=== PATIENT | female | born 1955 | race Caucasian/White ===

== ENCOUNTER 2016-11-11 15:29 | Emergency (ER) | payer OTHER ==
[2016-11-11 15:49] VITALS: BP 142/85
--- NOTE | 2016-11-11 16:28 | UC ---
Dizzy HPI HPI Summary: The patient comes in today for: 1. Dizziness ("spinning sensation"): Onset: Sudden onset while stepping out of the car 4 hours ago. Palliative/provocative: Moving her head makes it worse. Not moving her head makes it better. 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 Associated symptoms: No problems with slurred speech, numbness, weakness, or incoordination. Nausea was previously present, but it was worse when the vertigo was worse. Previous disease: Present in March of this last year. He had the Gennaro maneuver and this helped. * - History Of Current Complaint Chief Complaint: UCDizziness Stated Complaint: DIZZINESS Time Seen by Provider: 11/11/16 16:17 Hx Obtained From: Patient, Family/Cloth Shrinker - Allergies/Home Medications Allergies/Adverse Reactions: Allergies Allergy/AdvReac Type Severity Reaction Status Date / Time No Known Allergies Allergy Verified 11/11/16 15:41 Home Medications: Home Medications Calcium Carbonate (Antacid) [Tums] 500 mg PO 11/11/16 [History] Cholecalciferol [Vitamin D] 1,000 unit PO 11/11/16 [History Confirmed 11/11/16] PMH/Surg Hx/FS Hx/Imm Hx Previously Healthy: No - Hairy cell leukemia dx'ed 1992 and 2003 Endocrine History Of: Denies: Diabetes, Thyroid Disease, Hyperthyroidism, Hypothyroidism, Dyslipidemia Cardiovascular History Of: Denies: Cardiac Disorders, Hypertension, Pacemaker/ICD, Myocardial Infarction , Congestive Heart Failure, Atrial Fibrillation, Deep Vein Thrombosis, Bleeding Disorders Respiratory History Of: Denies: COPD, Asthma, Bronchitis, Pneumonia, Pulmonary Embolism GI/ History Of: Denies: Gastroesophageal Reflux, Ulcer, Gastrointestinal Bleed, Gall Bladder Disease, Kidney Stones, Diverticulitis, Renal Disease, Urosepsis Neurological History Of: Denies: TIA, CVA, Dementia, Seizures, Migraine Psychological History Of: Denies: Anxiety, Depression, Bipolar Disorder, Schizophrenia, Post Traumatic Stress Disorder Cancer History Of: Denies: Lung Cancer, Colorectal Cancer, Breast Cancer, Prostate Cancer, Cervical Cancer Other History Of: Negative For: HIV, Hepatitis B, Hepatitis C, Anticoagulant Therapy - Surgical History Surgical History: Yes Surgery Procedure, Year, and Place: cholescystectomy approx. 2009 - Family History Known Family History: Positive: Hypertension - Social History Occupation: Employed Full-time Lives: With Family Alcohol Use: Occasionally Substance Use Type: None Smoking Status (MU): Never Smoked Tobacco Review of Systems Constitutional: Negative Skin: Negative Eyes: Negative ENT: Negative Respiratory: Negative Cardiovascular: Negative Gastrointestinal: Negative Genitourinary: Negative Motor: Negative All Other Systems Reviewed And Are Negative: Yes Physical Exam Triage Information Reviewed: Yes Appearance: Well-Appearing, No Pain Distress, Well-Nourished Vital Signs: Initial Vital Signs Temp 96.7 F 11/11/16 15:43 Pulse 54 11/11/16 15:43 Resp 16 11/11/16 15:43 BP 142/85 11/11/16 15:43 Pulse Ox 99 11/11/16 15:43 Vital Signs Reviewed: Yes Eyes: Positive: Conjunctiva Clear. Negative: Discharge ENT: Positive: Hearing grossly normal. Negative: Pharyngeal erythema, Nasal congestion, Nasal drainage, TM bulging, TM dull, TM red, Tonsillar swelling, Tonsillar exudate Dental: Negative: Gross Decay/Caries @, Dental Fracture @ Neck: Positive: Supple, Nontender, No Lymphadenopathy. Negative: Nuchal Rigidity Respiratory: Positive: Lungs clear, No respiratory distress, No accessory muscle use. Negative: Crackles, Wheezing Cardiovascular: Positive: RRR, No Murmur Abdomen Description: Positive: Nontender, No Organomegaly, Soft. 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 Reflexes: Upper extremity: Triceps: 2+/2 x 2 Biceps: 2+/2 x 2 Brachioradialis: 2 +/2 x 2 Lower extremity: Patella: 2+/2 x 2 Achilles: 2+/ 2 x 2 Babinski: Upgoing x 2 Coordination: Upper extremity: Patting thigh: normal x 2 Alteranting patting of thigh: normal x 2 Alternating fingertips to the thumb: normal x 2 Closed eyes/index finger tip to nose: normal x 2 Lower extremity: Heel up and down the sanchez: normal x 2 Sensation: No complaints of loss of sensation. Gait: Regular: Normal Tandem: normal. Rhomberg: Normal Psychological: Positive: Age Appropriate Behavior, Consolable Skin: Negative: rashes, breakdown Diagnostics - Laboratory ABG Interpretation: Amawalk-Halpike test was normal for both ears. Dizzy Course/Dx - Course Course Of Treatment: While the patient was being seen, she said that her dizziness resolved. - Differential Dx/Diagnosis Differential Diagnosis/HQI/PQRI: Meniere's Disease Provider Diagnoses: Benign paroxysmal positional vertigo--resolved. Discharge - Discharge Plan Condition: Stable Disposition: HOME Patient Education Materials: Benign Paroxysmal Positional Vertigo (ED) Referrals: Capri Martínez MD [Primary Care Provider] - If Needed (See your primary care provider as needed for your vertigo.) Additional Instructions: Take Dramamine 50 mg/pill as 1-2 pills every 4 hours as needed for vertigo. If this does not help, please go to the ER.
== END 2016-11-11 17:15 | disposition home or self-care (01) ==
LOC: UCEAST 15:29
DX: H81.10 Benign paroxysmal vertigo, unspecified ear (principal); Z85.6 Personal history of leukemia
CPT/HCPCS: 99211; G0463